=== PATIENT | female | born 1980 | race African-American/Black ===

== ENCOUNTER 2019-09-23 00:21 | Emergency (ER) | payer MEDICAID ==
[~2019-09-23] VITALS: Ht 170.2 cm; Wt 127.0 kg
[2019-09-23 01:35] VITALS: BP 166/106
== END 2019-09-23 03:48 | disposition left against medical advice (07) ==
LOC: ER 00:21
DX: Z53.21 Procedure and treatment not carried out due to patient leaving prior to being seen by health care provider (principal)